=== PATIENT | female | born 1970 | race Caucasian/White ===

== ENCOUNTER 2018-11-20 00:51 | Emergency (ER) | payer OTHER ==
[~2018-11-20] VITALS: Ht 157.5 cm; Wt 95.5 kg
[2018-11-20] MEDS ORDERED: PROPARACAINE HCL 0.5% 15 ML OPHTHALMIC SOLUTION OU ONE (03:15)
[2018-11-20] MEDS ORDERED: FLUORESCEIN SODIUM 1 MG STRIP OU ONE (03:30)
[2018-11-20 03:48] VITALS: BP 148/82
== END 2018-11-20 04:08 | disposition home or self-care (01) ==
LOC: EMS 00:52
DX: T65.891A Toxic effect of other specified substances, accidental (unintentional), initial encounter (principal); H10.213 Acute toxic conjunctivitis, bilateral; Y92.89 Other specified places as the place of occurrence of the external cause